=== PATIENT | male | born 1990 | race Caucasian/White ===

== ENCOUNTER 2018-05-23 18:10 | Emergency (ER) | payer OTHER ==
[~2018-05-23] VITALS: Ht 182.9 cm; Wt 77.1 kg
[2018-05-23] MEDS ORDERED: MORPHINE SULFATE 2 MG/ML SYR IV STA (18:23)
--- NOTE | 2018-05-23 19:40 | Diagnostic Imaging Report ---
RIGHT FOOT X-RAY - 3 VIEWS, RIGHT ANKLE X-RAY, 3 VIEWS, RIGHT TIBIA/FIBULA, 2 VIEWS HISTORY: \S\trauma, concern for fracture and dislocation \[id number] \[id number] COMPARISON: None available. FINDINGS: Bones: Acute oblique fracture of the distal fibula just above of the plafond, resulting in medial displacement of the proximal fragment by one width. Widening of the medial malleolus of 1.3 cm. No fractures in the foot and proximal tibia and fibula. Metastatic nature overlying the distal femur. Tubular sclerotic lesion within the proximal tibia appears to represent the course of prior fixation. Joints: The joint spaces are well-maintained. Well corticated 0.9 cm sclerotic lesion overlying the calcaneus likely bone island. Soft tissues: The soft tissues appear unremarkable. IMPRESSION: Fracture/dislocation of the right distal fibula with widening of the medial malleolus suggestive of medial collateral ligament injury. Signed by: Dr. Tamara Chavez M.D. on 05/23/2018 7:37 PM
[2018-05-23] MEDS ORDERED: PROPOFOL IV EMULSION 10MG/ML 0 ML ONE (20:18)
[2018-05-23] MEDS ORDERED: PROPOFOL IV EMULSION 10 MG/ML 20 ML VIAL ONE (20:29)
[2018-05-23] MEDS ORDERED: BACITRACIN ZINC 0.9GM TP ONE (20:39)
[2018-05-23] MEDS ORDERED: PROPOFOL IV EMULSION 10 MG/ML 20 ML VIAL IV ONE (21:30)
[2018-05-23] MEDS ORDERED: MORPHINE SULFATE 2 MG/ML SYR IV ONE (21:30)
--- NOTE | 2018-05-23 21:32 | Diagnostic Imaging Report ---
EXAM: ANKLE 3+ VIEWS LEFT, AP, lateral and oblique INDICATION: Status post reduction for ankle fracture COMPARISON: Right ankle x-rays May 23, 2018 FINDINGS: BONES: Interval reduction of the trimalleolar fracture dislocation with bones in near anatomic alignment. Sclerosis measuring 9 mm projects over the calcaneus, probably bone island. JOINTS: Relocation of the ankle with widening of the tibiofibular syndesmosis and medial clear space consistent with ligamentous injury. SOFT TISSUES: Soft tissue swelling of the ankle. Interval splint placement. IMPRESSION: Interval reduction of the trimalleolar fracture dislocation with bones in near anatomic alignment. Signed by: Dr. Susanne Burks M.D. on 05/23/2018 9:29 PM
[2018-05-23] MEDS ORDERED: TYLENOL WITH C1 EACH PO (21:52)
[2018-05-23 22:55] VITALS: BP 119/74
[2018-05-24] MEDS ORDERED: KEFLEX500 MG PO (15:36)
== END 2018-05-23 22:45 | disposition home or self-care (01) ==
LOC: ER 18:10
DX: S82.491A Other fracture of shaft of right fibula, initial encounter for closed fracture (principal); X50.1XXA Overexertion from prolonged static or awkward postures, initial encounter; Y93.17 Activity, water skiing and wake boarding; Y92.828 Other wilderness area as the place of occurrence of the external cause
CPT/HCPCS: 27840; 73590; 73610 ×2; 73630; 99284; J2270